=== PATIENT | male | born 1960 | race Caucasian/White ===

== ENCOUNTER 2019-01-21 18:15 | Emergency (ER) | payer OTHER ==
[2019-01-21 18:56] VITALS: BP 145/81; PULSE 86; RESP 19; TEMP 97.9
[2019-01-21] MEDS ORDERED: IBUPROFEN 600 MG STARTER PACK 4 TAB BTL PO STA (19:16)
--- NOTE | 2019-01-21 19:37 | XR ---
EXAMINATION TYPE: XR elbow complete LT DATE OF EXAM: 01/21/2019 COMPARISON: NONE HISTORY: Pain FINDINGS: Three views of the elbow demonstrate no pathologic joint effusion. The osseous structures are intact . There is no acute fracture or dislocation. Hypertrophic spurring is noted. IMPRESSION: 1. No acute fracture or dislocation. If symptoms persist follow-up study in 7 to 10 days could be ob tained.
--- NOTE | 2019-01-21 20:04 | ED ---
Upper Extremity HPI - General Chief Complaint: Extremity Injury, Upper Stated Complaint: [facility] - rt arm/elbow injury Time Seen by Provider: 01/21/19 19:10 Source: patient Mode of arrival: ambulatory Limitations: no limitations - History of Present Illness Initial Comments: 58-year-old male patient presents to the emergency department today for evaluation of left elbow pain. Patient states he was at work using a wrench to load a sprain when the spring let go causing his left elbow to hyperextend. Patient states he is having pain radiating from his elbow up his upper arm and down his lower arm. Patient describes the pain as a burning sensation. States he is also having an odd sensation to his left thumb. Denies any numbness or tingling to the hand or arm. Patient denies any other injuries. Patient denies any headache, neck pain, back pain, chest pain, shortness of breath, dizziness, weakness, abdominal pain, nausea, vomiting, or difficulties with bowel movements or urination. - Related Data Previous Rx's Medication Instructions Recorded Ibuprofen [Motrin] 600 mg PO Q8HR PRN #30 tab 01/21/19 Allergies Allergy/AdvReac Type Severity Reaction Status Date / Time No Known Allergies Allergy Verified 01/21/19 18:56 Review of Systems ROS Statement: Those systems with pertinent positive or pertinent negative responses have been documented in the HPI. ROS Other: All systems not noted in ROS Statement are negative. Past Medical History Past Medical History: No Reported History History of Any Multi-Drug Resistant Organisms: None Reported Past Surgical History: Orthopedic Surgery Past Psychological History: No Psychological Hx Reported Smoking Status: Never smoker Past Alcohol Use History: None Reported Past Drug Use History: None Reported General Exam Limitations: no limitations General appearance: alert, in no apparent distress, other (This is a well- developed, well-nourished adult male patient in no acute distress. Vital signs upon presentation are temperature 97.9, pulse 86, respirations 19, blood pressure 145/81, pulse ox 96% on room air.) Respiratory exam: Present: normal lung sounds bilaterally. Absent: respiratory distress, wheezes, rales, rhonchi, stridor Cardiovascular Exam: Present: regular rate, normal rhythm, normal heart sounds. Absent: systolic murmur, diastolic murmur, rubs, gallop, clicks Extremities exam: Present: normal inspection, full ROM, normal capillary refill, other (There is pink, warm, dry skin to the left approximately. Cap refills less than 3 seconds. Radial pulses are 2+ and equal bilaterally). Absent: tenderness, pedal edema, joint swelling, calf tenderness Neurological exam: Present: alert, oriented X3, CN II-XII intact Psychiatric exam: Present: normal affect, normal mood Skin exam: Present: warm, dry, intact, normal color. Absent: rash Course Vital Signs 01/21/19 18:52 Temperature 97.9 F Pulse Rate 86 Respiratory 19 Rate Blood Pressure 145/81 O2 Sat by Pulse 96 Oximetry Medical Decision Making - Medical Decision Making 58-year-old male patient presents to the emergency department today for khurram luation of left elbow injury. Physical examination did reveal good neurovascular status. No soft tissue swelling or bony tenderness was noted. X- rays were obtained and showed no acute abnormalities. I did discuss findings and results with the patient. There is concern for tendon or ligamentous injury so he will be sent to orthopedics for further evaluation. Return parameters were discussed in detail. He verbalizes understanding and agrees with this plan. - Radiology Data Radiology results: report reviewed, image reviewed 3 views of the left elbow are obtained. Report was reviewed in its entirety. Impression by Dr. Johnson shows no acute fracture dislocation. If symptoms persist follow-up study in 7-10 days could be obtained. Disposition Clinical Impression: Injury of left elbow Disposition: HOME SELF-CARE Condition: Good Instructions (If sedation given, give patient instructions): Elbow Sprain (ED) Additional Instructions: Rest and ice the elbow. Use sling for comfort and support. Take medication for pain and inflammation relief. Follow-up with party supply specialist for further evaluation. Return to the emergency department immediately for any new, worsening, or concerning symptoms. Prescriptions: Ibuprofen [Motrin] 600 mg PO Q8HR PRN #30 tab PRN Reason: Pain Is patient prescribed a controlled substance at d/c from ED?: No Referrals: Nikko Tobar MD [Medical Doctor] - 1-2 days Time of Disposition: 20:03
== END 2019-01-21 20:18 | disposition home or self-care (01) ==
LOC: EC 18:15
DX: S59.902A Unspecified injury of left elbow, initial encounter (principal); X50.1XXA Overexertion from prolonged static or awkward postures, initial encounter; Y93.89 Activity, other specified; Y92.69 Other specified industrial and construction area as the place of occurrence of the external cause; Y99.0 Civilian activity done for income or pay
CPT/HCPCS: 99283